=== PATIENT | female | born 1965 | race Caucasian/White ===

== ENCOUNTER 2017-11-03 17:13 | Emergency (ER) | payer OTHER ==
[~2017-11-03] VITALS: Ht 162.6 cm; Wt 92.3 kg
[~2017-11-03 17:13] MED LIST: BUSPIRONE HCL15 MG PO; BUTALB-APAP-CA1 EACH PO; EFFEXOR PO; Effexor XR PO; FLUOXETINE HCL10 MG PO; FLUOXETINE HCL20 MG PO; FLUOXETINE HCL60 MG PO; HYDROCODON-ACE1 EAC5 PO; HYDROCODON-ACE1 EAC9 PO; HYDROCODON-ACE1 EACH PO; IMDUR PO; IRON325 M1 PO; K-DUR20 MEQ PO; LEVAQUIN750 MG PO; LEVOFLOXACIN750 MG PO; MORPHINE SULFAT30 M2 PO; NICOTINE PATCH1 EAC2 TD; PREDNISONE20 MG PO; PRILOSEC10 MG PO; PRILOSEC20 MG PO; PRILOSEC40 MG PO; PROAIR HFA8.5 GM IH; PROMETHAZINE HC25 M1 PO; PROMETHAZINE HC50 M1 PO; PROPRANOLOL HC120 MG PO; PROPRANOLOL HCL80 MG PO; PriLOSEC PO; TIZANIDINE HCL4 MG PO; TOPAMAX100 MG PO; TOPAMAX200 MG PO; TOPIRAMATE100 MG PO; ZOLOFT100 MG PO; [UNRECOGNIZED DRUG - OTHER] PO
[2017-11-03 17:47] LABS: APPEARANCE CLEAR ((CLEAR)); BILIRUBIN NEGATIVE; BLOOD NEGATIVE; COLOR YELLOW ((YELLOW)); GLUCOSE (STRIP) NEGATIVE; KETONES NEGATIVE; LEUKOCYTES NEGATIVE; NITRITE NEGATIVE; PROTEIN (STRIP) NEGATIVE; SPECIFIC GRAVITY 1.003 (1.000-1.030); UROBILINOGEN 0.2 MG/DL (0.2-1.0)
[2017-11-03 17:55] LABS: BASOPHIL (%) 0.4 % (0-1); EOSINOPHIL (%) 0.8 % (0-5); EOSINOPHIL COUNT 0.1 K/uL (0-0.3); HEMATOCRIT 42.9 % (36.0-46.0); HEMOGLOBIN 13.6 G/DL (11.9-15.5); IMMATURE GRANULOCYTE (%) 0.2 % (0.0-0.7); LYMPHOCYTE (%) 26.3 % (15-42); LYMPHOCYTE COUNT 2.5 K/uL (1.0-2.8); MCH 26.9 PG (29.0-34.0); MCHC 31.7 G/DL (30.0-36.0); MCV 84.8 FL (83-99); MONOCYTE (%) 5.4 % (3-12); MONOCYTE COUNT 0.5 K/uL (0-0.8); NEUTROPHIL (%) 66.9 % (45-76); NEUTROPHIL COUNT 6.4 K/uL (1.8-6.4); PLATELET COUNT 348 K/uL (156-360); RBC DIS.WIDTH-CV 14.1 % (11.8-14.6); RBC DIS.WIDTH-SD 42.8 % (39-53); RED BLOOD COUNT 5.06 M/uL (3.80-5.20); WHITE BLOOD COUNT 9.6 K/uL (4.1-10.2)
[2017-11-03 18:08] LABS: ALBUMIN 4.2 g/dL (3.2-4.8); CHLORIDE 109 mEq/L (99-109); POTASSIUM 4.1 mEq/L (3.7-5.4); SODIUM 144 mEq/L (136-147)
[2017-11-03 18:11] LABS: GLUCOSE 73 mg/dL (70-99); TOTAL PROTEIN 7.7 g/dL (6.4-8.3)
[2017-11-03 18:12] LABS: TOTAL BILIRUBIN 0.2 mg/dL (0.0-1.0)
[2017-11-03 18:14] LABS: ALKALINE PHOSPHATASE 140 IU/L (3-129); CREATININE 0.9 mg/dL (0.6-1.3); GFR ESTIMATE (CALCULATED) > 59 mL/min/
[2017-11-03 18:15] LABS: UREA NITROGEN (BUN) 9 mg/dL (9-23)
[2017-11-03 18:16] LABS: AST (GOT) 41 IU/L (2-34)
[2017-11-03 18:17] LABS: ALT (GPT) 44 IU/L (3-49)
[2017-11-03 18:18] LABS: LIPASE 20 U/L (1.0-51.0); QUANTITATIVE HCG < 4.0 MIU/ML
[2017-11-03] MEDS ORDERED: MIRALAX255 GM PO (21:17)
[2017-11-03 21:43] VITALS: BP 136/74
== END 2017-11-03 21:44 | disposition home or self-care (01) ==
LOC: EME 17:13
PROVIDERS: Physician Assistant
DX: R10.13 Epigastric pain (principal); K59.00 Constipation, unspecified; R11.0 Nausea; G89.29 Other chronic pain; Z98.84 Bariatric surgery status; Z90.49 Acquired absence of other specified parts of digestive tract; K21.9 Gastro-esophageal reflux disease without esophagitis; J45.909 Unspecified asthma, uncomplicated; Z88.2 Allergy status to sulfonamides; Z88.5 Allergy status to narcotic agent; F17.200 Nicotine dependence, unspecified, uncomplicated
CPT/HCPCS: 74177; 80053; 81003; 83605; 83690; 84702; 85025; 99281; 99284; J7030